=== PATIENT | female | born 1975 | race Caucasian/White ===

== ENCOUNTER 2016-07-24 13:37 | Emergency (ER) | payer SELFPAY ==
[~2016-07-24] VITALS: Ht 149.9 cm; Wt 100.0 kg
[~2016-07-24 13:37] MED LIST: CIPRO 500MG TA500 MG PO; IMODIUM 2MG CAPS2 MG PO
[2016-07-24 14:00] VITALS: BP 105/84; PULSE 87; TEMP 98.1
[2016-07-24] MEDS ORDERED: AEROCHAMBER1 DEV PO (15:12)
[2016-07-24] MEDS ORDERED: PROAIR HFA0.09 MG/AC IH (15:12)
== END 2016-07-24 15:28 | disposition home or self-care (01) ==
LOC: COL.ER 13:37
DX: J40 Bronchitis, not specified as acute or chronic (principal); B34.9 Viral infection, unspecified; R21 Rash and other nonspecific skin eruption; K21.9 Gastro-esophageal reflux disease without esophagitis

== ENCOUNTER 2017-08-02 18:31 | Emergency (ER) | payer SELFPAY ==
[~2017-08-02] VITALS: Ht 149.9 cm; Wt 100.0 kg
[~2017-08-02 18:31] MED LIST changes: +AEROCHAMBER1 DEV PO; +PROAIR HFA0.09 MG/AC IH
[2017-08-02 18:34] VITALS: TEMP 97.5
[2017-08-02 19:46] LABS: BASO % 0.4 % (0.0-2.0); EOS # 0.1 (0.0-0.7); EOS % 1.4 % (0-4.0); GRAN # 4.7 (1.4-6.5); GRAN % 63.1 % (42.2-75.2); HEMATOCRIT 44.1 % (37.0-47.0); HEMOGLOBIN 14.1 g/dl (12.5-16.0); LYMPH # 2.1 (1.2-3.4); LYMPH % 28.9 % (20.0-51.0); MEAN CELL VOLUME 88 fl (80.0-100.0); MEAN CORPUSCULAR HEMOGLOBIN 28 pg (27.0-31.0); MEAN CORPUSCULAR HGB CONC 32 g/dl (33.0-37.0); MEAN PLATELET VOLUME 10.6 fl (7.4-10.4); MONO # 0.5 (0.1-0.6); MONO % 6.1 % (1.7-9.3); PLATELET COUNT 181 K/mm3 (130-400); RED BLOOD COUNT 5.02 M/mm3 (4.10-5.30); REDCELL DISTRIBUTION WIDTH-CV 13.8 % (11.5-14.5)
[2017-08-02 20:00] LABS: ALANINE AMINOTRANSFERASE 34 U/L (9-52); ALBUMIN 4.1 gm/dL (3.5-5.0); ALKALINE PHOSPHATASE 110 U/L (50-136); ANION GAP 12 mmol/L (7-16); AST,SGOT 22 U/L (15-37); BILIRUBIN,TOTAL 0.5 mg/dL (0.0-1.0); BLOOD UREA NITROGEN 8 mg/dL (7-17); C-REACTIVE PROTEIN < 0.5 mg/dL (0.0-0.9); CALCIUM 9.2 mg/dL (8.4-10.2); CARBON DIOXIDE 23 mmol/L (22-30); CHLORIDE 104 mmol/L (98-107); CREATINE KINASE 33 U/L (30-135); CREATININE, serum 0.61 mg/dL (0.52-1.25); GLUCOSE 89 mg/dL (74-106); SODIUM 140 mmol/L (137-145); TOTAL PROTEIN 7.5 gm/dL (6.4-8.2)
[2017-08-02 20:05] LABS: ERYTHROCYTE SEDIMENTATION RATE 27 mm/hr (0-20)
[2017-08-02 22:00] VITALS: BP 121/54; PULSE 65
== END 2017-08-02 22:03 | disposition home or self-care (01) ==
LOC: COL.ER 18:31
PROVIDERS: Emergency Medicine
DX: R20.2 Paresthesia of skin (principal); M79.1 Myalgia

== ENCOUNTER 2020-07-21 12:29 | Emergency (ER) | payer BC ==
[~2020-07-21] VITALS: Ht 149.9 cm; Wt 110.5 kg
[2020-07-21 12:34] VITALS: BP 108/72; TEMP 97.4
[2020-07-21 13:25] LABS: BASO % 0.3 % (0.0-2.0); EOS # 0.1 (0.0-0.7); EOS % 1.6 % (0-4.0); GRAN # 4.3 (1.4-6.5); GRAN % 67.6 % (42.2-75.2); HEMATOCRIT 45.6 % (37.0-47.0); HEMOGLOBIN 14.2 g/dl (12.5-16.0); LYMPH # 1.5 (1.2-3.4); MEAN CELL VOLUME 91 fl (80.0-100.0); MEAN CORPUSCULAR HEMOGLOBIN 28 pg (27.0-31.0); MEAN CORPUSCULAR HGB CONC 31 g/dl (33.0-37.0); MEAN PLATELET VOLUME 10.6 fl (7.4-10.4); MONO # 0.4 (0.1-0.6); MONO % 6.2 % (1.7-9.3); PLATELET COUNT 171 K/mm3 (130-400); RED BLOOD COUNT 5.03 M/mm3 (4.10-5.30); REDCELL DISTRIBUTION WIDTH-CV 14.3 % (11.5-14.5)
[2020-07-21 13:32] LABS: ALBUMIN 4.1 gm/dL (3.5-5.0); BILIRUBIN,TOTAL 0.7 mg/dL (0.0-1.0); CALCIUM 9.5 mg/dL (8.4-10.2); CREATININE, serum 0.63 (0.52-1.25); POTASSIUM 4.5 mmol/L (3.4-5.0); TOTAL PROTEIN 7.5 gm/dL (6.4-8.2)
[2020-07-21 14:14] LABS: COLLECTION METHOD CLEAN CATCH
[2020-07-21 14:24] LABS: MUCOUS Present /lpf; PH 5 (5-8); URINE APPEARANCE Hazy; URINE BACTERIA None Seen /hpf; URINE BILIRUBIN Negative (NEGATIVE); URINE BLOOD 1+ (NEGATIVE); URINE COLOR Yellow; URINE GLUCOSE Negative (NEGATIVE); URINE KETONE Negative (NEGATIVE); URINE LEUKOCYTE ESTERASE 2+ (NEGATIVE); URINE NITRATE Negative (NEGATIVE); URINE PROTEIN(semi-quant) Negative (NEGATIVE); URINE RBC 0-2 /hpf; URINE UROBILINOGEN Negative (NEGATIVE); URINE WBC 20-50 /hpf
[2020-07-21] MEDS ORDERED: MACROBID 1100 MG/CAP PO (14:46)
[2020-07-21 15:00] VITALS: PULSE 72
== END 2020-07-21 14:59 | disposition home or self-care (01) ==
LOC: COL.ER 12:29
PROVIDERS: Nurse Practitioner Primary Care
DX: N39.0 Urinary tract infection, site not specified (principal); R20.0 Anesthesia of skin; R20.2 Paresthesia of skin; Z88.8 Allergy status to other drugs, medicaments and biological substances; Z87.891 Personal history of nicotine dependence; Z80.0 Family history of malignant neoplasm of digestive organs

== ENCOUNTER 2023-09-27 14:49 | Emergency (ER) | payer OTHER ==
[~2023-09-27] VITALS: Ht 149.9 cm; Wt 108.2 kg
[~2023-09-27 14:49] MED LIST changes: +MACROBID 1100 MG/CAP PO
[2023-09-27 14:57] VITALS: TEMP 98.2
[2023-09-27] MEDS ORDERED: DESONATE TP (16:43)
[2023-09-27 16:58] VITALS: BP 145/81; PULSE 71
== END 2023-09-27 17:01 | disposition home or self-care (01) ==
LOC: COL.ER 14:49
DX: R21 Rash and other nonspecific skin eruption (principal)